=== PATIENT | female | born 1950 | race Asian ===

== ENCOUNTER 2018-11-09 13:25 | Emergency (ER) | payer OTHER, MEDICAID ==
[~2018-11-09] VITALS: Ht 154.9 cm; Wt 72.7 kg
[2018-11-09 14:57] LABS: BASOPHILS % (AUTO) 0.7 % (0.0-2.0); EOSINOPHILS % (AUTO) 1.8 % (1.0-6.0); HEMATOCRIT 31.6 % (36-46); HEMOGLOBIN 10.3 g/dL (12.0-16.0); LYMPHOCYTES # (AUTO) 2.5 K/uL (1.0-4.8); LYMPHOCYTES % (AUTO) 27.1 % (22.0-44.0); MEAN CORPUSCULAR HEMOGLOBIN 28.7 pg (26.0-34.0); MEAN CORPUSCULAR HGB CONC 32.5 G/dL (31.0-37.0); MEAN CORPUSCULAR VOLUME 88 fL (80-100); MONOCYTES # (AUTO) 0.6 K/uL (0.1-1.0); NEUTROPHILS # (AUTO) 5.7 K/uL (1.8-7.7); NEUTROPHILS % (AUTO) 63.4 % (40.0-70.0); PLATELET COUNT (AUTO) 253 K/uL (150-450); RED BLOOD CELL COUNT(AUTO) 3.57 MIL/uL (4.00-5.20); RED CELL DISTRIBUTION WIDTH 14.4 % (11.5-14.5)
[2018-11-09 15:15] LABS: CALCIUM, TOTAL 9.1 mg/dL (8.8-10.5); CREATININE 2.73 mg/dL (0.60-1.30); POTASSIUM 4.9 mmol/L (3.5-5.1)
[2018-11-09 15:39] VITALS: BP 109/59
[2018-11-09 15:39] LABS: ALBUMIN 3.5 g/dL (3.4-5.0); BILIRUBIN,TOTAL 0.2 mg/dL (0.1-1.0); TOTAL PROTEIN, SERUM 8.2 g/dL (6.4-8.2)
[2018-11-09 15:48] LABS: APPEARANCE,URINE CLEAR (CLEAR); BILIRUBIN,URINE NEGATIVE (NEGATIVE); GLUCOSE, URINE (UA) NEGATIVE (NEGATIVE); KETONES,URINE NEGATIVE (NEGATIVE); LEUKOCYTE ESTERASE ,URINE NEGATIVE (NEGATIVE); NITRATE,URINE NEGATIVE (NEGATIVE); OCCULT BLOOD,URINE NEGATIVE (NEGATIVE); PROTEIN,URINE NEGATIVE (NEGATIVE); UROBILINOGEN,URINE 0.2 mg/dL (<=1.0)
== END 2018-11-09 16:26 | disposition home or self-care (01) ==
LOC: EMS 13:26
DX: N18.9 Chronic kidney disease, unspecified (principal)
CPT/HCPCS: 93005

== ENCOUNTER 2018-11-16 03:48 | Emergency (ER) | payer OTHER, MEDICAID ==
[~2018-11-16] VITALS: Ht 162.6 cm; Wt 72.7 kg
[2018-11-16] MEDS ORDERED: ROSU20TA23 PO (03:58)
[2018-11-16] MEDS ORDERED: ASPI81 PO (03:58)
[2018-11-16] MEDS ORDERED: HYDR25TA84 PO (03:58)
[2018-11-16] MEDS ORDERED: AMLO-511 PO (03:58)
[2018-11-16] MEDS ORDERED: LINA5TAB PO (03:58)
[2018-11-16] MEDS ORDERED: [UNRECOGNIZED DRUG - CODE] PO (03:58)
[2018-11-16] MEDS ORDERED: CEPHALEXIN MONOHYDRATE 500 MG CAPSULE PO ONE (05:30)
[2018-11-16] MEDS ORDERED: IBUPROFEN 600 MG TABLET PO ONE (05:30)
[2018-11-16 05:56] VITALS: BP 161/76
== END 2018-11-16 06:11 | disposition home or self-care (01) ==
LOC: EMS 03:49
DX: M13.861 Other specified arthritis, right knee (principal); L03.115 Cellulitis of right lower limb; I10 Essential (primary) hypertension; E78.00 Pure hypercholesterolemia, unspecified; G89.29 Other chronic pain; Z79.82 Long term (current) use of aspirin

== ENCOUNTER 2018-12-03 11:33 | Emergency (ER) | payer OTHER, MEDICAID ==
[~2018-12-03] VITALS: Ht 162.6 cm; Wt 72.7 kg
[~2018-12-03 11:33] MED LIST: AMLO-511 PO; ASPI81 PO; HYDR25TA84 PO; LINA5TAB PO; ROSU20TA23 PO; [UNRECOGNIZED DRUG - CODE] PO
[2018-12-03] MEDS ORDERED: BACL10TA PO (11:41)
[2018-12-03] MEDS ORDERED: DULO20CA30 PO (11:41)
[2018-12-03 11:54] LABS: GLUCOSE,POINT OF CARE 117 MG/DL (70-110)
[2018-12-03 14:40] VITALS: BP 128/62
[2018-12-03] MEDS ORDERED: HYDROCODONE/ACETAMINOPHEN 5-325 MG TABLET PO ONE (14:45)
== END 2018-12-03 15:50 | disposition home or self-care (01) ==
LOC: EMS 11:34
DX: M17.0 Bilateral primary osteoarthritis of knee (principal); I12.9 Hypertensive chronic kidney disease with stage 1 through stage 4 chronic kidney disease, or unspecified chronic kidney disease; E11.22 Type 2 diabetes mellitus with diabetic chronic kidney disease; N18.9 Chronic kidney disease, unspecified; E78.00 Pure hypercholesterolemia, unspecified; G89.29 Other chronic pain; Z79.82 Long term (current) use of aspirin

== ENCOUNTER 2021-04-23 17:22 | Emergency (ER) | payer MEDICARE, MEDICAID ==
[~2021-04-23] VITALS: Ht 154.9 cm; Wt 77.3 kg
[~2021-04-23 17:22] MED LIST changes: +AMLO-257 PO; -AMLO-511 PO; +ASPI-1450 PO; -ASPI81 PO; +BACL10TA PO; +DULO20CA27 PO; -ROSU20TA23 PO; +ROSU20TA73 PO
[2021-04-23 19:25] VITALS: BP 187/77
== END 2021-04-23 20:04 | disposition home or self-care (01) ==
LOC: EMS 17:23
DX: H11.31 Conjunctival hemorrhage, right eye (principal); I12.9 Hypertensive chronic kidney disease with stage 1 through stage 4 chronic kidney disease, or unspecified chronic kidney disease; E11.22 Type 2 diabetes mellitus with diabetic chronic kidney disease; N18.9 Chronic kidney disease, unspecified; E78.00 Pure hypercholesterolemia, unspecified
CPT/HCPCS: 99281; Z7502

== ENCOUNTER 2021-11-04 15:52 | Emergency (ER) | payer MEDICARE, MEDICAID ==
[~2021-11-04] VITALS: Ht 162.6 cm; Wt 72.7 kg
[2021-11-04 16:00] VITALS: BP 161/77
[2021-11-04] MEDS ORDERED: HYDR120L TP (16:16)
== END 2021-11-04 16:28 | disposition home or self-care (01) ==
LOC: EMS 15:54
DX: L30.9 Dermatitis, unspecified (principal); E11.9 Type 2 diabetes mellitus without complications; E78.00 Pure hypercholesterolemia, unspecified; I10 Essential (primary) hypertension; G89.29 Other chronic pain; Z79.82 Long term (current) use of aspirin
CPT/HCPCS: 99282; Z7502

== ENCOUNTER 2024-05-07 12:46 | Emergency (ER) | payer MEDICARE, OTHER ==
[~2024-05-07] VITALS: Ht 160 cm; Wt 75.0 kg
[~2024-05-07 12:46] MED LIST changes: -DULO20CA27 PO; +DULO20CA71 PO; +HYDR120L TP
[2024-05-07 12:48] VITALS: BP 159/80; PULSE 97; RESP 18; TEMP 98.3
[2024-05-07] MEDS ORDERED: ROSU40TA70 PO (12:51)
[2024-05-07] MEDS ORDERED: CARV12.530 PO (12:51)
[2024-05-07] MEDS ORDERED: AMLO10TA55 PO (12:51)
== END 2024-05-07 15:47 | disposition home or self-care (01) ==
LOC: EMS 12:49
DX: H81.392 Other peripheral vertigo, left ear (principal); E78.00 Pure hypercholesterolemia, unspecified; I10 Essential (primary) hypertension; G89.29 Other chronic pain; Z98.890 Other specified postprocedural states
CPT/HCPCS: 93005; 99284; Z7502

== ENCOUNTER 2024-05-10 11:47 | Emergency (ER) | payer MEDICARE, OTHER ==
[~2024-05-10] VITALS: Ht 162.6 cm; Wt 70.9 kg
[~2024-05-10 11:47] MED LIST changes: -AMLO-257 PO; +AMLO10TA55 PO; -ASPI-1450 PO; +CARV12.530 PO; -HYDR120L TP; -LINA5TAB PO; -ROSU20TA73 PO; +ROSU40TA70 PO; -[UNRECOGNIZED DRUG - CODE] PO
[2024-05-10 12:04] VITALS: TEMP 98.2
[2024-05-10] MEDS ORDERED: EMPA25TA3 PO (12:06)
[2024-05-10 13:40] LABS: BASOPHILS % (AUTO) 1.1 % (0.0-2.0); EOSINOPHILS % (AUTO) 5.5 % (1.0-6.0); HEMATOCRIT 40.2 % (36-46); HEMOGLOBIN 13.2 g/dL (12.0-16.0); LYMPHOCYTES % (AUTO) 32.8 % (22.0-44.0); MEAN CORPUSCULAR HEMOGLOBIN 29.6 pg (26.0-34.0); MEAN CORPUSCULAR HGB CONC 32.8 G/dL (31.0-37.0); MEAN CORPUSCULAR VOLUME 90 fL (80-100); MONOCYTES # (AUTO) 0.5 K/uL (0.1-1.0); MONOCYTES % (AUTO) 8.4 % (2.0-9.0); NEUTROPHILS # (AUTO) 3.1 K/uL (1.8-7.7); NEUTROPHILS % (AUTO) 52.2 % (40.0-70.0); PLATELET COUNT (AUTO) 227 K/uL (150-450); RED BLOOD CELL COUNT(AUTO) 4.45 MIL/uL (4.00-5.20); RED CELL DISTRIBUTION WIDTH 15.7 % (11.5-14.5)
[2024-05-10 13:51] LABS: CALCIUM, TOTAL 8.6 mg/dL (8.8-10.5); CREATININE 0.93 mg/dL (0.60-1.30); POTASSIUM 3.6 mmol/L (3.5-5.1)
[2024-05-10 14:50] LABS: TROPONIN I-HIGH SENSITIVITY 11 ng/L (<51)
[2024-05-10] MEDS: MECLIZINE HCL 25 MG TABLET PO ONE (15:14)
[2024-05-10 15:34] VITALS: BP 155/78; PULSE 76; RESP 16; O2SAT 100
[2024-05-10 16:21] LABS: TROPONIN I-HIGH SENSITIVITY 12 ng/L (<51)
[2024-05-10] MEDS ORDERED: MECL-134 PO (16:53)
== END 2024-05-10 17:07 | disposition home or self-care (01) ==
LOC: EMS 11:47
DX: H81.399 Other peripheral vertigo, unspecified ear (principal); E78.00 Pure hypercholesterolemia, unspecified; I10 Essential (primary) hypertension; G89.29 Other chronic pain; M25.569 Pain in unspecified knee; Z98.890 Other specified postprocedural states
CPT/HCPCS: 80048; 83735; 84484; 85025; 93005; 99284

== ENCOUNTER 2024-12-02 20:56 | Emergency (ER) | payer MEDICARE, OTHER ==
[~2024-12-02] VITALS: Ht 162.6 cm; Wt 68.0 kg
[~2024-12-02 20:56] MED LIST changes: -BACL10TA PO; -CARV12.530 PO; +EMPA25TA3 PO; -HYDR25TA84 PO; +MECL-134 PO; -ROSU40TA70 PO; +ROSU40TA88 PO
[2024-12-02 21:09] VITALS: TEMP 98.5
[2024-12-02 22:15] VITALS: BP 140/72; PULSE 92; RESP 16; O2SAT 98
== END 2024-12-03 00:10 | disposition home or self-care (01) ==
LOC: EMS 20:56
DX: S06.0XAA Concussion with loss of consciousness status unknown, initial encounter (principal); M25.512 Pain in left shoulder; M54.2 Cervicalgia; E78.00 Pure hypercholesterolemia, unspecified; G89.29 Other chronic pain; I12.9 Hypertensive chronic kidney disease with stage 1 through stage 4 chronic kidney disease, or unspecified chronic kidney disease; N18.9 Chronic kidney disease, unspecified; Z79.899 Other long term (current) drug therapy; Z98.890 Other specified postprocedural states; W19.XXXA Unspecified fall, initial encounter; Y93.89 Activity, other specified; Y92.89 Other specified places as the place of occurrence of the external cause; Y99.8 Other external cause status
CPT/HCPCS: 70450; 72125; 99284

== ENCOUNTER 2024-12-16 05:05 | Inpatient (IN) | payer MEDICARE, OTHER ==
[~2024-12-16] VITALS: Ht 162.6 cm; Wt 68.0 kg
[~2024-12-16 05:05] MED LIST changes: +DULO20CA70 PO; -DULO20CA71 PO
[2024-12-16 06:44] LABS: BASOPHILS % (AUTO) 0.7 % (0.0-2.0); EOSINOPHILS % (AUTO) 3.7 % (1.0-6.0); HEMATOCRIT 41.3 % (36-46); HEMOGLOBIN 13.6 g/dL (12.0-16.0); LYMPHOCYTES # (AUTO) 2.5 K/uL (1.0-4.8); LYMPHOCYTES % (AUTO) 32.8 % (22.0-44.0); MEAN CORPUSCULAR HEMOGLOBIN 29.3 pg (26.0-34.0); MEAN CORPUSCULAR HGB CONC 32.9 G/dL (31.0-37.0); MEAN CORPUSCULAR VOLUME 89 fL (80-100); MONOCYTES # (AUTO) 0.6 K/uL (0.1-1.0); MONOCYTES % (AUTO) 7.6 % (2.0-9.0); NEUTROPHILS # (AUTO) 4.3 K/uL (1.8-7.7); NEUTROPHILS % (AUTO) 55.2 % (40.0-70.0); PLATELET COUNT (AUTO) 218 K/uL (150-450); RED BLOOD CELL COUNT(AUTO) 4.65 MIL/uL (4.00-5.20); RED CELL DISTRIBUTION WIDTH 15.1 % (11.5-14.5); WHITE BLOOD COUNT (AUTO) 7.8 K/uL (4.5-11.0)
[2024-12-16 06:46] LABS: ANION GAP 9 mmol/L (8-16); CALCIUM, TOTAL 9.3 mg/dL (8.8-10.5); CARBON DIOXIDE 29 mmol/L (22-29); CHLORIDE 105 mmol/L (98-107); CREATININE 0.87 mg/dL (0.60-1.30); GLOMERULAR FILTR. RATE CALC > 60 mL/min (>60); GLUCOSE,RANDOM 131 mg/dL (70-110); POTASSIUM 3.9 mmol/L (3.5-5.1); SODIUM SERUM 143 mmol/L (136-145); UREA NITROGEN, BLOOD 24 mg/dL (7-18)
[2024-12-16 06:55] LABS: TROPONIN I-HIGH SENSITIVITY 7 ng/L (<51)
[2024-12-16 06:59] LABS: COVID AG,FIA SOURCE NASAL SWAB
[2024-12-16] MEDS: FUROSEMIDE 20 MG/2 ML VIAL IVP ONE (07:06)
[2024-12-16] MEDS: ASPIRIN 325 MG TABLET PO ONE (07:06)
[2024-12-16 07:07] LABS: ALCOHOL, BLOOD (SERUM) < 3 mg/dL (0-10)
[2024-12-16 07:11] LABS: APPEARANCE,URINE CLEAR (CLEAR); BILIRUBIN,URINE NEGATIVE (NEGATIVE); COLOR,URINE LIGHT YELLOW (YELLOW); GLUCOSE, URINE (UA) NEGATIVE (NEGATIVE); KETONES,URINE NEGATIVE (NEGATIVE); LEUKOCYTE ESTERASE ,URINE TRACE (NEGATIVE); NITRATE,URINE NEGATIVE (NEGATIVE); OCCULT BLOOD,URINE NEGATIVE (NEGATIVE); PH,URINE 5.5 (5.0-8.0); PH,URINE DRUG SCREEN 5.5 (5.0-8.0); PROTEIN,URINE 30-70 mg/dL (NEGATIVE); SPECIFIC GRAVITIY, URINE 1.016 (1.003-1.030); UROBILINOGEN,URINE <=1.0 mg/dL (<=1.0)
[2024-12-16 07:17] LABS: AMPHET/METH SCREEN,URINE NEGATIVE (NEGATIVE); BARBITURATE SCREEN, URINE NEGATIVE (NEGATIVE); BENZODIAZEPINES SCREEN,URINE NEGATIVE (NEGATIVE); CANNABINOID SCREEN,URINE NEGATIVE (NEGATIVE); COCAINE SCREEN,URINE NEGATIVE (NEGATIVE); METHADONE SCREEN, URINE NEGATIVE (NEGATIVE); OPIATE SCREEN,URINE NEGATIVE (NEGATIVE); PHENCYCLIDINE SCREEN,URINE NEGATIVE (NEGATIVE)
[2024-12-16 07:19] LABS: ALCOHOL, URINE DRUG SCREEN NEGATIVE (NEGATIVE)
[2024-12-16 07:44] LABS: BACTERIA,URINE None Seen /HPF (None Seen); RBC,URINE None Seen /HPF (0-2); SQUAMOUS EPITHELIAL CELL,UR Rare /LPF (None Seen); WBC,URINE 0-2 /HPF (0-5)
[2024-12-16 07:55] LABS: INFLUENZA TYPE A NEGATIVE FOR TYPE A (NEGATIVE); INFLUENZA TYPE B NEGATIVE FOR TYPE B (NEGATIVE); SARS-COV2 (COVID) ANTIGEN,FIA Negative (Negative)
[2024-12-16 10:59] VITALS: BP 149/74; PULSE 78; RESP 16; TEMP 97.8; O2SAT 98
[2024-12-16 11:56] VITALS: BP 130/72; PULSE 71; RESP 17; TEMP 98; O2SAT 95
[2024-12-16 15:39] VITALS: BP 132/70; PULSE 72; RESP 18; TEMP 97.9; O2SAT 96
[2024-12-16] MEDS ORDERED: ONDANSETRON HCL 4 MG/2 ML VIAL IVP PRN (16:15)
[2024-12-16] MEDS: AmLODIPine BESYLATE 10 MG TABLET PO SCH (16:15)
[2024-12-16] MEDS ORDERED: MECLIZINE HCL 25 MG TABLET PO PRN (16:15)
[2024-12-16] MEDS ORDERED: ACETAMINOPHEN 325 MG TABLET PO PRN (16:15)
[2024-12-16] MEDS: ENOXAPARIN SODIUM 40 MG/0.4 ML PF SYRINGE SQ SCH (16:15)
[2024-12-16 20:00] VITALS: BP 121/69; PULSE 73; RESP 16; TEMP 97.5; O2SAT 98
[2024-12-16] MEDS: EMPAGLIFLOZIN 25 MG TABLET PO SCH (20:30)
[2024-12-16] MEDS: DULoxetine HCL 20 MG CAPSULE PO SCH (20:30)
[2024-12-16] MEDS: ROSUVASTATIN CALCIUM 20 MG TABLET PO SCH (20:30)
[2024-12-17] VITALS (7 sets, daily range): BP systolic 122–147; BP diastolic 60–75; PULSE 69–83; RESP 16–18; TEMP 97.7–98.4; O2SAT 94–98
[2024-12-18] VITALS: BP 126/66; PULSE 80; RESP 18; TEMP 98.4; O2SAT 95
[2024-12-18 04:02] VITALS: BP 143/80; PULSE 79; RESP 18; TEMP 98.1; O2SAT 97
[2024-12-18 07:47] VITALS: BP 123/76; PULSE 78; RESP 18; TEMP 98.1; O2SAT 100
[2024-12-18 11:35] VITALS: BP 152/90; PULSE 78; RESP 18; TEMP 98.6; O2SAT 100
[2024-12-18] MEDS ORDERED: 0.9% SODIUM CHLORIDE 10 ML SYRINGE IVP PRN (14:00)
[2024-12-18 14:32] LABS: ANION GAP 7 mmol/L (8-16); CALCIUM, TOTAL 8.6 mg/dL (8.8-10.5); CARBON DIOXIDE 29 mmol/L (22-29); CHLORIDE 105 mmol/L (98-107); CREATININE 0.83 mg/dL (0.60-1.30); GLOMERULAR FILTR. RATE CALC > 60 mL/min (>60); GLUCOSE,RANDOM 140 mg/dL (70-110); SODIUM SERUM 141 mmol/L (136-145); UREA NITROGEN, BLOOD 19 mg/dL (7-18)
[2024-12-18 15:57] VITALS: BP 132/64; PULSE 78; RESP 18; TEMP 98.8; O2SAT 96
[2024-12-18 20:15] VITALS: BP 118/54; PULSE 74; RESP 18; TEMP 98.2; O2SAT 94
[2024-12-19 04:10] VITALS: BP 120/58; PULSE 80; RESP 18; TEMP 97.5; O2SAT 95
[2024-12-19 06:25] LABS: BASOPHILS % (AUTO) 0.8 % (0.0-2.0); EOSINOPHILS % (AUTO) 4.4 % (1.0-6.0); HEMOGLOBIN 13.1 g/dL (12.0-16.0); LYMPHOCYTES # (AUTO) 2.8 K/uL (1.0-4.8); LYMPHOCYTES % (AUTO) 42.4 % (22.0-44.0); MEAN CORPUSCULAR HEMOGLOBIN 29.3 pg (26.0-34.0); MEAN CORPUSCULAR HGB CONC 32.7 G/dL (31.0-37.0); MEAN CORPUSCULAR VOLUME 90 fL (80-100); MONOCYTES # (AUTO) 0.6 K/uL (0.1-1.0); MONOCYTES % (AUTO) 8.5 % (2.0-9.0); NEUTROPHILS # (AUTO) 2.9 K/uL (1.8-7.7); NEUTROPHILS % (AUTO) 43.9 % (40.0-70.0); PLATELET COUNT (AUTO) 195 K/uL (150-450); RED BLOOD CELL COUNT(AUTO) 4.45 MIL/uL (4.00-5.20); RED CELL DISTRIBUTION WIDTH 15.3 % (11.5-14.5); WHITE BLOOD COUNT (AUTO) 6.6 K/uL (4.5-11.0)
[2024-12-19 07:34] VITALS: BP 152/82; PULSE 81; RESP 18; TEMP 98.2; O2SAT 95
[2024-12-19 15:15] VITALS: BP 126/72; PULSE 79; RESP 18; TEMP 98.2; O2SAT 96
== END 2024-12-19 17:58 | disposition home or self-care (01) | DRG 291 ==
LOC: EMS 05:05 → EDH 09:25 → 5N 10:20 → 4E 12-18 15:18
PROVIDERS: ADMIT Family Medicine; ATTEND Family Medicine
DX: I13.0 Hypertensive heart and chronic kidney disease with heart failure and stage 1 through stage 4 chronic kidney disease, or unspecified chronic kidney disease (principal); I50.33 Acute on chronic diastolic (congestive) heart failure; E78.00 Pure hypercholesterolemia, unspecified; F32.9 Major depressive disorder, single episode, unspecified; R62.7 Adult failure to thrive; N18.9 Chronic kidney disease, unspecified; G89.29 Other chronic pain; Z20.822 Contact with and (suspected) exposure to COVID-19; Z68.25 Body mass index [BMI] 25.0-25.9, adult
CPT/HCPCS: 71045; 80048; 80307; 81001; 83735; 83880; 84484; 85025; 87804; 93005; 93306; 96374; 97162; 97165; 99285; G0378; G0480; J1650; J1940; 36415-L1; 36415-TC

== ENCOUNTER 2025-05-09 13:40 | Emergency (ER) | payer MEDICARE, OTHER ==
[~2025-05-09] VITALS: Ht 152.4 cm; Wt 70.0 kg
[~2025-05-09 13:40] MED LIST changes: +DULO20CA23 PO; -DULO20CA70 PO
[2025-05-09 14:06] VITALS: TEMP 98.1
[2025-05-09] MEDS: LIDOCAINE 5% TRANSDERMAL PATCH TD ONE (14:48)
[2025-05-09] MEDS: IBUPROFEN 400 MG TABLET PO ONE (14:48)
[2025-05-09] MEDS: ACETAMINOPHEN 500 MG TABLET PO ONE (14:48)
[2025-05-09 16:29] VITALS: BP 137/78; PULSE 84; RESP 18; O2SAT 98
== END 2025-05-09 16:55 | disposition home or self-care (01) ==
LOC: EMS 13:40
DX: S00.33XA Contusion of nose, initial encounter (principal); E78.00 Pure hypercholesterolemia, unspecified; I13.0 Hypertensive heart and chronic kidney disease with heart failure and stage 1 through stage 4 chronic kidney disease, or unspecified chronic kidney disease; N18.9 Chronic kidney disease, unspecified; I50.9 Heart failure, unspecified; G89.29 Other chronic pain; Z79.899 Other long term (current) drug therapy; Z98.890 Other specified postprocedural states; W01.0XXA Fall on same level from slipping, tripping and stumbling without subsequent striking against object, initial encounter; Y93.89 Activity, other specified; Y92.89 Other specified places as the place of occurrence of the external cause; Y99.8 Other external cause status
CPT/HCPCS: 99284; Z7502; Z7610